=== PATIENT | female | born 1970 | race Caucasian/White ===

== ENCOUNTER 2023-08-31 10:52 | Outpatient (CLI) | payer OTHER, SELFPAY ==
--- NOTE | 2023-08-31 11:05 | XR_ITS ---
WS: [id number] XR lumbar spine 2-3V* [id number] REASON FOR EXAM: ARTHRITIS FINDINGS: 5 lumbar vertebrae with the first having rudimentary ribs. Mild rotatory scoliosis convex left. Normal lordosis. No significant vertebral body abnormality. The intervertebral disc spaces are relatively well-preserved L1-L4. There is severe narrowing of the L5-S1 disc space which may be partially autofused. There is 3 mm of anterolisthesis of L4 on L5. IMPRESSION: Degenerative spondylosis as above.
--- NOTE | 2023-08-31 11:05 | XR_ITS ---
WS: [id number] XR knee LT 1-2V [id number] REASON FOR EXAM: ARTHRITIS FINDINGS: No fracture or focal bone lesion. Moderate narrowing of the medial knee joint space with moderate subchondral sclerosis and osteophytos is. Lateral knee joint space is intact with minimal narrowing. Mild subchondral sclerosis and moderate os teophytosis. Mild to moderate narrowing of the patellofemoral joint with moderate subchondral sclerosis and minor osteophytosis of the patella. IMPRESSION: Moderate osteoarthritis of the left knee.
== END 2023-08-31 10:53 | disposition home or self-care (01) ==
LOC: RAD 10:57
PROVIDERS: Visit Provider Dermatology
DX: M47.817 Spondylosis without myelopathy or radiculopathy, lumbosacral region (principal); M17.12 Unilateral primary osteoarthritis, left knee
CPT/HCPCS: 72100; 73560